=== PATIENT | female | born 1940 ===

== ENCOUNTER 2020-09-01 07:11 | Day surgery (SDC) | payer MEDICARE, OTHER ==
[~2020-09-01] VITALS: Ht 154.9 cm; Wt 47.6 kg
[~2020-09-01 07:11] MED LIST: ASPI-543 PO; ATOR40TA52 PO; BUPR75TA9 PO; CLOP75TA28 PO; ISOS20TA5 PO; METO-158 PO; NITR0.4S29 SL; OMEP20TA PO; POM PO; [UNRECOGNIZED DRUG - CODE] PO
[2020-09-01] MEDS ORDERED: IODIXANOL 320MG/ML 100ML BTL IV ONE ×3 (09:37→09:51)
[2020-09-01] MEDS ORDERED: LIDOCAINE 2%HCL (LOCAL ANESTH.) INJ 20ML MDV ONE (09:37)
[2020-09-01] MEDS ORDERED: ANGIOMAX 250 MG VIAL IV ONE (09:50)
[2020-09-01] MEDS ORDERED: ATROPINE SULF 1 MG/10ml SYR ONE (09:50)
[2020-09-01] MEDS ORDERED: fentaNYL CITRATE 100 MCG/2 ML VL ONE (09:50)
[2020-09-01] MEDS ORDERED: MIDAZOLAM HCL 1MG/1ML-2 ML VIAL ONE (09:50)
[2020-09-01] MEDS ORDERED: SODIUM CHL 0.9% 0 ML ONE (09:51)
[2020-09-01] MEDS ORDERED: ONDANSETRON HCL 4 MG/2 ML VIAL IV PRN (10:45)
[2020-09-01] MEDS ORDERED: ACETAMINOPHEN 500 MG TAB PO PRN (10:45)
== END 2020-09-01 13:03 | disposition home or self-care (01) ==
LOC: CATH 07:11
PROVIDERS: ATTEND Internal Medicine
DX: R94.39 Abnormal result of other cardiovascular function study (principal); I25.810 Atherosclerosis of coronary artery bypass graft(s) without angina pectoris; Z20.822 Contact with and (suspected) exposure to COVID-19; Z98.890 Other specified postprocedural states; Z79.899 Other long term (current) drug therapy
CPT/HCPCS: 93459; C1760; C1769; C1894; J1644; J2250; J3010; Q9967; U0003; 99152